=== PATIENT | male | born 1995 | race Caucasian/White ===

== ENCOUNTER 2022-07-09 05:22 | Emergency (ER) | payer SELFPAY ==
[~2022-07-09] VITALS: Ht 185.4 cm; Wt 125.6 kg
--- NOTE | 2022-07-09 06:20 | NUR ---
BIBS FOR C/O L SHOULDE PAIN S/P FALL. W/ HX OF L SHOULDER INJURY. PATIENT IS AAOX4. ABLE TO MAKE NEEDS KNOWN. WITH PAIN SCALE OF 10/10. PLACED COMFORTABLY IN BED. VITALS CHECKED.
[2022-07-09] MEDS ORDERED: KETOROLAC TROMETHAMINE INJ 30 MG/ML VIAL ONE (06:46)
[2022-07-09] MEDS ORDERED: HYDROCODONE/APAP 10/325MG TABLET ONE (06:46)
--- NOTE | 2022-07-09 06:56 | NUR ---
MESS COOK AT BEDSIDE
[2022-07-09] MEDS ORDERED: HYDROCODONE/APAP 10/325MG TABLET PO ONE (07:00)
[2022-07-09] MEDS ORDERED: KETOROLAC TROMETHAMINE INJ 30 MG/ML VIAL IM ONE (07:00)
[2022-07-09] MEDS ORDERED: METHOCARBAMOL (500MG) 500 MG TABLET ONE (08:27)
[2022-07-09] MEDS ORDERED: METHOCARBAMOL (500MG) 500 MG TABLET PO ONE (08:30)
[2022-07-09] MEDS ORDERED: IBUP-1955 PO (08:42)
[2022-07-09] MEDS ORDERED: METH-649 PO (08:42)
--- NOTE | 2022-07-09 08:53 | NUR ---
PROVIDED W SLING FOR COMFORT. D/C HOME IN STABLE CONDITION.
[2022-07-09 08:54] VITALS: BP 135/82
== END 2022-07-09 08:55 | disposition home or self-care (01) ==
LOC: ER 05:33
DX: S46.912A Strain of unspecified muscle, fascia and tendon at shoulder and upper arm level, left arm, initial encounter (principal); Z79.899 Other long term (current) drug therapy; W18.30XA Fall on same level, unspecified, initial encounter; Y93.68 Activity, volleyball (beach) (court); Y92.89 Other specified places as the place of occurrence of the external cause; Y99.8 Other external cause status
CPT/HCPCS: 99283; 96372; 73030; J1885